=== PATIENT | female | born 2000 | race Hispanic/Latino ===

== ENCOUNTER 2024-01-31 19:05 | Emergency (ER) | payer SELFPAY ==
[2024-01-31] MEDS ORDERED: HYDROCODONE/APAP 7.5/325 MG TAB ONE (19:19)
[2024-01-31 19:22] LABS: Specific Gravity 1.011 (1.005-1.030)
[2024-01-31] MEDS ORDERED: ONDANSETRON 4 MG (ODT) TAB ONE (19:23)
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
[2024-01-31] MEDS ORDERED: TETRACAINE HCL 0.5% 4ML OPTH ONE (20:37)
[2024-01-31] MEDS ORDERED: CYCLOBENZAPRINE 10 MG TAB ONE (20:37)
[2024-01-31] MEDS ORDERED: KETOROLAC 30 MG/ML INJ ONE (20:37)
[2024-01-31 21:20] VITALS: BP 127/96; TEMP 98.2; O2SAT 97
== END 2024-01-31 20:51 | disposition home or self-care (01) ==
LOC: ER 19:05
DX: R51.9 Headache, unspecified (principal); R07.81 Pleurodynia; V49.40XA Driver injured in collision with unspecified motor vehicles in traffic accident, initial encounter
CPT/HCPCS: 70450; 71250; 72125; 81025; 96372; 99284; Q0162